=== PATIENT | male | born 1990 | race Caucasian/White ===

== ENCOUNTER 2022-07-16 19:05 | Emergency (ER) | payer OTHER ==
--- NOTE | 2022-07-16 20:06 | ED Physician Documentation ---
History of Present Illness - Stated complaint Stated Complaint: COUGH,CONGESTION - Chief complaint Chief Complaint: Resp - History obtained from History obtained from: Patient - History of Present Illness Timing: How many weeks ago Pain level max: 0 Pain level now: 0 Improved by: no ameliorating factors Worsened by: no exacerbating factors - Additonal information Additional information: c/o one week generalized myalgias , nasal congestion, and developed productive cough 2 days ago. Feels like he's had fever at home but has not taken his temperature. Review of Systems Constitutional: reports: Fever (subjective), Myalgias Ears: denies: Ear pain Nose: reports: Congestion Throat: reports: Sore throat ("from coughing" (per patient)) Respiratory: reports: Cough. denies: Dyspnea PD PAST MEDICAL HISTORY - Past Medical History Past Medical History: No - Present Medications Home Medications: Ambulatory Orders Medication Instructions Recorded Confirmed Lisinopril [Zestril] 20 mg PO DAILY 07/16/22 07/16/22 Metoprolol Succinate [Toprol Xl] 50 mg PO DAILY 07/16/22 07/16/22 - Allergies Allergies/Adverse Reactions: Allergies Allergy/AdvReac Type Severity Reaction Status Date / Time No Known Drug Allergies Allergy Verified 07/16/22 19:14 - Living Situation Living Arrangement: reports: At home PD ED PE NORMAL - Vitals Vital signs reviewed: Yes - General General: Alert and oriented X 3, No acute distress, Well developed/nourished - Neck Neck: Supple, no meningeal sign - Cardiac Cardiac: RRR, No murmur - Respiratory Respiratory: No respiratory distress, Clear bilaterally Results - Vitals Vitals: Oxygen O2 Source Room air - Labs Labs: Laboratory Tests 07/16/22 19:39 Nasal Adenovirus (PCR) NOT DETECTED Nasal B. parapertussis DNA (PCR) NOT DETECTED Nasal Coronavir 229E PCR NOT DETECTED Nasal Coronavir HKU1 PCR NOT DETECTED Nasal Coronavir NL63 PCR NOT DETECTED Nasal Coronavir OC43 PCR NOT DETECTED Nasal Enterovir/Rhinovir PCR DETECTED A Nasal Influenza A H3 PCR DETECTED A Nasal Influenza B PCR NOT DETECTED Nasal Parainfluen 1 PCR NOT DETECTED Nasal Parainfluen 2 PCR NOT DETECTED Nasal Parainfluen 3 PCR NOT DETECTED Nasal Parainfluen 4 PCR NOT DETECTED Nasal RSV (PCR) NOT DETECTED Nasal B.pertussis DNA PCR NOT DETECTED Nasal C.pneumoniae (PCR) NOT DETECTED [place] Human Metapneumo PCR NOT DETECTED Nasal M.pneumoniae (PCR) NOT DETECTED Nasal SARS-CoV-2 (PCR) NOT DETECTED PD MEDICAL DECISION MAKING - ED course Complexity details: reviewed results, re-evaluated patient, considered differential, d/w patient ED course: Respiratory PCR viral panel is positive for influenza A as well as enterovirus/rhinovirus. Results d/w patient. Patient does not have risk factors for higher complication rate (with influenza) and thus anti-viral (such as oseltamivir) not indicated. Departure - Departure Disposition: 01 Home, Self Care Clinical Impression: Influenza A, Rhinovirus Condition: Good Instructions: ED Flu, ED Viral Syndrome [facility] Comments: You tested positive for influenza as well as enterovirus/rhinovirus. You will likely have symptoms for 4-5 days including high fevers. You are very contagious. There is no specific treatment for these viruses (there is an anti- influenza medication but only for some patients; you do not have any risk factors that would indicate this would be a potentially helpful medication). Forms: Activity restrictions Discharge Date/Time: 07/16/22 22:39
[2022-07-16 21:32] LABS: CORONAVIRUS 229E-RESP PCR NOT DETECTED; CORONAVIRUS HKU1-RESP PCR NOT DETECTED; CORONAVIRUS NL63-RESP PCR NOT DETECTED; CORONAVIRUS OC43-RESP PCR NOT DETECTED; SARS-CoV-2 -RESP PCR PANEL NOT DETECTED
[2022-07-16 21:33] LABS: B. PARAPERTUSSIS- RESP PCR PAN NOT DETECTED; B. PERTUSSIS- RESP PCR PANEL NOT DETECTED; C. PNEUMONIAE- RESP PCR PANEL NOT DETECTED; HUMAN METAPNEUMOVIRUS NOT DETECTED; INFLUENZA A H3- RESP PCR PANEL DETECTED; INFLUENZA B - RESP PCR PANEL NOT DETECTED; M. PNEUMONIAE- RESP PCR PANEL NOT DETECTED; PARAINFLUENZA VIRUS 1 NOT DETECTED; PARAINFLUENZA VIRUS 2 NOT DETECTED; PARAINFLUENZA VIRUS 3 NOT DETECTED; PARAINFLUENZA VIRUS 4 NOT DETECTED; RHINOVIRUS/ENTEROVIRUS DETECTED; RSV- RESP PCR PANEL NOT DETECTED
[2022-07-16 22:40] VITALS: BP 117/72
== END 2022-07-16 22:39 | disposition home or self-care (01) ==
LOC: ED 19:05
DX: J10.1 Influenza due to other identified influenza virus with other respiratory manifestations (principal); B34.8 Other viral infections of unspecified site; Z20.822 Contact with and (suspected) exposure to COVID-19
CPT/HCPCS: 87633; 99282; 99283

== ENCOUNTER 2023-07-13 23:22 | Emergency (ER) | payer OTHER ==
[2023-07-14] MEDS ORDERED: SODIUM CHLORIDE 0.9% 1,000 ML IV STA (00:14)
[2023-07-14] MEDS ORDERED: KETOROLAC 30 MG/ML VIAL IVP STA (00:14)
[2023-07-14 00:43] LABS: BASOPHILS % (AUTO) 0.5 %; EOSINOPHILS % (AUTO) 0.7 %; HGB - HEMOGLOBIN 14.4 g/dL (14.0-18.0); LYMPHOCYTES # (AUTO) 1.1 10^3/uL (1.5-3.5); LYMPHOCYTES % (AUTO) 18.6 %; MEAN CORPUSCULAR HEMOGLOBIN 30.4 pg (27.0-31.0); MEAN CORPUSCULAR HGB CONC 33.5 g/dL (32.0-36.0); MEAN CORPUSCULAR VOLUME 90.7 fL (80.0-94.0); MEAN PLATELET VOLUME 8.3 fL (7.4-11.4); MONOCYTES # (AUTO) 0.3 10^3/uL (0.0-1.0); MONOCYTES % (AUTO) 5.1 %; NEUTROPHILS # (AUTO) 4.6 10^3/uL (1.5-6.6); NEUTROPHILS % (AUTO) 74.9 %; PLT - PLATELET COUNT 231 10^3/uL (130-450); RED BLOOD COUNT 4.74 10^6/uL (4.70-6.10); RED CELL DISTRIBUTION WIDTH 11.9 % (12.0-15.0); WHITE BLOOD COUNT 6.1 x10^3/uL (4.8-10.8)
[2023-07-14 00:56] LABS: ALBUMIN 4.8 g/dL (3.2-5.5); ALBUMIN/GLOBULIN RATIO 2.2 (1.0-2.2); BILIRUBIN,TOTAL 0.6 mg/dL (0.2-1.0); CALCIUM 9.8 mg/dL (8.5-10.3); CREATININE 0.9 mg/dL (0.6-1.3)
[2023-07-14 01:00] VITALS: BP 118/74; O2SAT 96
--- NOTE | 2023-07-14 01:47 | ED Physician Documentation ---
History of Present Illness - Stated complaint Stated Complaint: HEAD PRESSURE - Chief complaint Chief Complaint: General - History obtained from History obtained from: Patient - Additonal information Additional information: Patient is a 32-year-old male with a history of hypertension presenting for evaluation of just feeling generally off for the past several days. He states that he has had head pressure which she describes near his temples since Monday. He also reports feeling his pulse more in his body but denies chest pain or shortness of air or visual disturbances. He denies feeling that his heart is racing or skipping beats he is just more aware of his pulse throughout his body. Denies dizziness. Does not like a migraine headache or the worst headache he has had. No abdominal symptoms. He was concerned it could be related to his blood pressure being elevated as he recalls similar symptoms prior to getting started on antihypertensives but he has been taking his blood pressure medications without missing doses.He works the evening shift at the [employer] but does feel like he has been getting good sleep through the day. He does not feel like he is more particularly stressed right now compared to other times in his life including earlier this year. Review of Systems Constitutional: denies: Fever Cardiac: denies: Chest pain / pressure, Palpitations Respiratory: denies: Dyspnea, Cough GI: denies: Abdominal Pain Neurologic: reports: Headache PD PAST MEDICAL HISTORY - Past Medical History Past Medical History: Yes Cardiovascular: Hypertension Respiratory: None Neuro: None Endocrine/Autoimmune: None GI: None : None HEENT: None Psych: None Musculoskeletal: None Derm: None - Past Surgical History Past Surgical History: No - Present Medications Home Medications: Ambulatory Orders Medication Instructions Recorded Confirmed Lisinopril [Zestril] 20 mg PO DAILY 07/16/22 07/13/23 Metoprolol Succinate [Toprol Xl] 50 mg PO DAILY 07/16/22 07/13/23 - Allergies Allergies/Adverse Reactions: Allergies Allergy/AdvReac Type Severity Reaction Status Date / Time No Known Drug Allergies Allergy Verified 07/13/23 23:25 - Social History Does the pt smoke?: No Smoking Status: Never smoker Does the pt drink ETOH?: No Does the pt have substance abuse?: No - Immunizations Immunizations are current?: Yes - POLST Patient has POLST: No PD ED PE NORMAL - General General: Alert and oriented X 3, No acute distress, Well developed/nourished - HEENT HEENT: Atraumatic, PERRL, EOMI, Moist mucous membranes, Pharynx benign - Neck Neck: Supple, no meningeal sign - Cardiac Cardiac: RRR, Strong equal pulses - Respiratory Respiratory: No respiratory distress, Clear bilaterally - Abdomen Abdomen: Soft, Non tender, Non distended - Derm Derm: Warm and dry - Neuro Neuro: Alert and oriented X 3, press setter 2-12 intact, No motor deficit, Normal speech Results - Vitals Vitals: Vital Signs - 24 hr 07/13/23 07/14/23 23:26 00:30 Temperature 36.8 C Heart Rate 72 60 Respiratory 16 18 Rate Blood Pressure 150/80 H 118/74 O2 Saturation 98 96 Oxygen O2 Source Room air - Labs Labs: Laboratory Tests 07/14/23 07/14/23 00:38 00:38 WBC 6.1 RBC 4.74 Hgb 14.4 Hct 43.0 MCV 90.7 MCH 30.4 MCHC 33.5 RDW 11.9 L Plt Count 231 MPV 8.3 Neut # (Auto) 4.6 Lymph # (Auto) 1.1 L [place] # (Auto) 0.3 Eos # (Auto) 0.0 Baso # (Auto) 0.0 Absolute Nucleated RBC 0.00 Nucleated RBC % 0.0 Sodium 136 Potassium 4.0 Chloride 101 Carbon Dioxide 28 Anion Gap 7.0 BUN 15 Creatinine 0.9 Estimated GFR (MDRD) 97 Glucose 93 Calcium 9.8 Total Bilirubin 0.6 AST 23 ALT 24 Alkaline Phosphatase 47 Total Protein 7.0 Albumin 4.8 Globulin 2.2 Albumin/Globulin Ratio 2.2 Lipase 29 PD Medical Decision Making - ED course Complexity details: reviewed results, re-evaluated patient, d/w patient ED course: Patient is a 32-year-old male presenting for evaluation of generally feeling off for the past several days with mild headache and feeling a more prominent pulse throughout his body. He denies chest pain or shortness of air. His vital signs are stable. Normal neuro exam. Patient reports that his head pressure actually feels better here. Patient has a normal EKG without signs of acute ischemia. No chest pain to suggest ACS. CBC, chemistry were obtained and reviewed and without significant findings. Received IV fluids and Toradol. He is ambulatory here. Has not had any worsening symptoms and again reports that the head pain has gotten better. At this time I do not see signs of an emergent medical condition. Discussed need for close follow-up with his primary care provider at the [facility] as well as concerning symptoms to return for. Departure - Departure Disposition: 01 Home, Self Care Clinical Impression: Pressure in head Condition: Stable Instructions: ED Headache Tension Follow-Up: [facility] [Provider Group] Comments: At this time the exact cause for your symptoms is unclear. Your EKG is reassuring with a regular rhythm. Your labs are also reassuring at this time with normal CBC and chemistries. I would recommend close follow-up with your primary care at [facility]. In the meanwhile continue getting enough rest, staying hydrated and taking your blood pressure medications. If you develop any worsening symptoms please return to the emergency department. Forms: PCP List Discharge Date/Time: 07/14/23 01:53
== END 2023-07-14 01:53 | disposition home or self-care (01) ==
LOC: ED 23:22
DX: R51.9 Headache, unspecified (principal)
CPT/HCPCS: 36415; 80053; 83690; 85025; 93005; 96374; 99284